=== PATIENT | male | born 1950 ===

== ENCOUNTER 2023-05-24 12:18 | Emergency (ER) | payer OTHER ==
[~2023-05-24] VITALS: Ht 167.6 cm; Wt 83.9 kg
[2023-05-24 13:11] LABS: BASOPHILS ABSOLUTE AUTO 0.05 K/mm3 (0.00-0.23); BASOPHILS PERCENT AUTO 0 % (0-2); EOSINOPHILS ABSOLUTE AUTO 0.03 K/mm3 (0.00-0.68); EOSINOPHILS PERCENT AUTO 0 % (0-6); Hematocrit 39.3 % (37.0-53.0); Hemoglobin 13.6 g/dL (13.5-17.5); IMMATURE GRAN ABSOLUTE AUTO 0.13 K/mm3 (0.00-0.10); IMMATURE GRAN PERCENT AUTO 1 % (0-1); LYMPHOCYTES ABSOLUTE AUTO 1.18 K/mm3 (0.84-5.20); LYMPHOCYTES PERCENT AUTO 10 % (21-46); MONOCYTES ABSOLUTE AUTO 1.18 K/mm3 (0.16-1.47); MONOCYTES PERCENT AUTO 10 % (4-13); Mean Corpuscular HGB 31.4 pg (26.0-34.0); Mean Corpuscular HGB Conc 34.6 g/dL (31.5-36.5); Mean Corpuscular Volume 91 fL (80-100); NEUTROPHILS ABSOLUTE AUTO 9.41 K/mm3 (1.96-9.15); NEUTROPHILS PERCENT AUTO 79 % (41-73); Platelet Count 309 K/mm3 (150-400); RDW Coefficient Variation 16.4 % (11.7-14.2); RDW Standard Deviation 55.1 fL (35.1-46.3); Red Blood Cell Count 4.33 M/mm3 (4.30-5.90); White Blood Cell Count 11.98 K/mm3 (4.00-11.30)
[2023-05-24 13:43] LABS: Albumin, Blood 3.7 g/dL (3.4-5.0); Albumin/Globulin Ratio 1.1 (0.8-1.8); Bilirubin, Total 0.6 mg/dL (0.1-1.0); Bun/Creatinine Ratio 10.8 (12.0-20.0); Calcium, Blood 9.1 mg/dL (8.5-10.1); Creatinine, Blood 0.84 mg/dL (0.60-1.20); Globulin, Blood 3.5 g/dL (2.2-4.0); Magnesium, Blood 2.4 mg/dL (1.6-2.4); Potassium, Blood 3.4 mmol/L (3.5-5.5); Total Protein, Blood 7.2 g/dL (6.4-8.2)
[2023-05-24] MEDS ORDERED: GABA300 PO (14:44)
== END 2023-05-24 15:01 | disposition home or self-care (01) ==
LOC: ER 12:18
PROVIDERS: Student in an Organized Health Care Education/Training Program
DX: E87.6 Hypokalemia (principal); E86.0 Dehydration; R00.0 Tachycardia, unspecified; M54.40 Lumbago with sciatica, unspecified side; G89.29 Other chronic pain; I10 Essential (primary) hypertension; E78.5 Hyperlipidemia, unspecified; F17.210 Nicotine dependence, cigarettes, uncomplicated
CPT/HCPCS: 71046; 80053; 83735; 84484; 85025; 93005; 93010; 96361; 96374; 99284-25; A9270; J1885; J7030